=== PATIENT | female | born 1970 | race Caucasian/White ===

== ENCOUNTER 2017-04-21 13:44 | Emergency (ER) | payer BC ==
[~2017-04-21] VITALS: Ht 170.2 cm; Wt 79.4 kg
--- NOTE | 2017-04-21 13:47 | NUR ---
BENOIT RAMIREZ FROM HOME TOP ER BED 14 C/O DIZZINESS AND NAUSEA AND VOMITING SINCE THIS MORNING. ALSO C/O LOWER QUADRANT ABDOMINAL PAIN. 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 PLACED ON MONITOR. NAD NOTED. AWAITING MD ENGLISH.
--- NOTE | 2017-04-21 14:00 | NUR ---
DR MCCARTNEY AT BEDSIDE FOR EVAL.
[2017-04-21] MEDS ORDERED: ONDANSETRON 4 MG TAB.RAPDIS ONE (14:06)
[2017-04-21] MEDS ORDERED: MECLIZINE HCL 25 MG TABLET ONE ×2 (14:06→15:20)
[2017-04-21] MEDS: ONDANSETRON 4 MG TAB.RAPDIS PO ONE ×2 (14:08→14:18)
[2017-04-21 14:18] LABS: BASOPHILS % (AUTO) 0.4 % (0.0-2.0); EOSINOPHILS % (AUTO) 0.4 % (0.0-6.0); HEMATOCRIT 43 % (33-45); HEMOGLOBIN 14.4 g/dL (11.5-14.8); LYMPHOCYTES # (AUTO) 0.6 /CMM (0.8-4.8); LYMPHOCYTES % (AUTO) 7.6 % (20.0-44.0); MEAN CORPUSCULAR HEMOGLOBIN 30 PG (26.0-33.0); MEAN CORPUSCULAR HGB CONC 33 g/dl (31.0-36.0); MEAN CORPUSCULAR VOLUME 91 fL (82-100); MONOCYTES # (AUTO) 0.1 /CMM (0.1-1.30); MONOCYTES % (AUTO) 1.5 % (2.0-12.0); NEUTROPHILS # (AUTO) 7.5 /CMM (1.8-8.9); NEUTROPHILS % (AUTO) 90.1 % (43.0-81.0); PLATELET COUNT (AUTO) 246 /CMM (150-450); RDW COEFFICIENT OF VARIATION 12.6 (11.5-15.0); RED BLOOD CELL COUNT(AUTO) 4.77 MIL/uL (4.0-5.2); WHITE BLOOD COUNT (AUTO) 8.2 K/uL (4.3-11.0)
--- NOTE | 2017-04-21 14:25 | NUR ---
PT VOMITTED MEDICATION. DR MCCARTNEY AWARE.
[2017-04-21] MEDS ORDERED: MECLIZINE HCL 12.5 MG TABLET PO ONE (14:30)
[2017-04-21 14:34] LABS: ALANINE AMINOTRANSFERASE 23 U/L (12-78); ALKALINE PHOSPHATASE 49 U/L (46-116); ASPARTATE AMINOTRANSFERASE 20 U/L (15-37); BILIRUBIN,DIRECT 0.1 mg/dL (0.0-0.2); BILIRUBIN,TOTAL 0.6 mg/dL (0.2-1.0); CALCIUM, SERUM 9.1 mg/dL (8.5-10.1); CARBON DIOXIDE 21 mmol/L (21-32); CHLORIDE 103 mmol/L (98-107); CREATININE 0.8 mg/dL (0.6-1.3); GLUCOSE 143 mg/dL (74-106); POTASSIUM 3.4 mmol/L (3.5-5.1); SODIUM SERUM 137 mmol/L (136-145); TOTAL PROTEIN, SERUM 7.8 g/dL (6.4-8.2); UREA NITROGEN, BLOOD 14 mg/dL (7-18)
[2017-04-21 14:36] LABS: TROPONIN I < 0.017 ng/mL (0.00-0.056)
--- NOTE | 2017-04-21 15:10 | NUR ---
PT TO RADIOLOGY FOR HEAD AND ABDOMINAL CT SCAN VIA [facility]
[2017-04-21] MEDS ORDERED: ONDANSETRON HCL/PF 4 MG/2 ML VIAL ONE (15:20)
[2017-04-21] MEDS ORDERED: ONDANSETRON HCL/PF - ER 4 MG/2 ML VIAL IV ONE (15:30)
[2017-04-21] MEDS ORDERED: MECLIZINE HCL 25 MG TABLET PO ONE (15:30)
[2017-04-21 15:45] LABS: APPEARANCE,URINE Slightly Cloudy (CLEAR); BILIRUBIN,URINE Negative (NEGATIVE); BLOOD, URINE Negative Ery/uL (NEGATIVE); COLOR,URINE Dark (YELLOW); KETONES,URINE >=160 (NEGATIVE); LEUKOCYTE ESTERASE ,URINE Small (NEGATIVE); NITRITE, URINE Negative (NEGATIVE); PROTEIN,URINE 100 mg/dl (NEGATIVE); UGLUCOSE Negative (NEGATIVE); UROBILINOGEN,URINE 0.2 EU/dL (0.2)
[2017-04-21 15:49] LABS: PH,URINE >9.0 (5.0-8.0)
[2017-04-21] MEDS ORDERED: MORPHINE SULFATE INJ 4 MG/ML DISP.SYRIN ONE (16:22)
[2017-04-21 16:27] LABS: BACTERIA,URINE Moderate /HPF (None Seen); RBC,URINE 0-2 /HPF (0-2)
[2017-04-21 16:28] LABS: SQUAMOUS EPITHELIAL CELL,UR Many /HPF (None Seen)
--- NOTE | 2017-04-21 16:28 | NUR ---
PT IS REFUSING MORPHINE. DR MCCARTNEY MADE AWARE. U/S TECH AT BEDSIDE FOR ABDOMINAL/PELVIC ULTRASOUND.
[2017-04-21] MEDS ORDERED: MORPHINE SULFATE INJ 4 MG/ML DISP.SYRIN IV ONE (16:30)
--- NOTE | 2017-04-21 19:00 | NUR ---
Patient discharged to home in stable condition. Written and verbal after care instructions given. Patient verbalizes understanding of instruction.IV removed. Catheter intact and site benign. Pressure and 4x4 applied to site. No bleeding noted.
[2017-04-21 22:17] VITALS: BP 132/84
== END 2017-04-21 19:00 | disposition home or self-care (01) ==
LOC: ER 13:46
DX: R42 Dizziness and giddiness (principal); J45.909 Unspecified asthma, uncomplicated; E07.9 Disorder of thyroid, unspecified
CPT/HCPCS: 36415; 70450; 72128; 74176; 76856; 80048; 80076; 81001; 84484; 85025; 87086; 93005; 96374; 99285; A4606; 81000-TC; Z7610